=== PATIENT | male | born 1940 | race Caucasian/White ===

== ENCOUNTER 2021-05-27 20:44 | Inpatient (IN) ==
[2021-05-27] MEDS: LACTATED RINGERS 1,000 ML IV STA (21:45)
[2021-05-27 22:14] LABS: Basophils % 0.2 % (0.0-0.8); Eosinophils # 0.1 10*3/uL (0.0-0.87); Eosinophils % 0.8 % (0.00-10.9); Hematocrit 36.8 VOL% (42.0-52.0); Hemoglobin 12.4 GM/DL (14.0-18.0); Immature Granulocytes % 0.5 %; Immature Granulocytes Absolute 0.04 #; Lymphocytes # 1.1 10*3/uL (1.4-4.0); Lymphocytes % 13.1 % (21.2-54.2); Mean Corpuscular HGB Conc 33.7 GM/DL (32-36); Mean Platelet Volume 11.9 FL (9.6-12.0); Monocytes % 18.2 % (1.7-12.7); Neutrophils % 67.2 % (38.7-73.9); Platelet Count 101 T/CUMM (130-400); Red Blood Count 3.68 MC/CUMM (3.8-5.5); Red Cell Distribution Width 13.2 % (9.3-17.3); White Blood Count 8.6 T/CUMM (4-12)
[2021-05-27 22:26] LABS: Bacteria,Urine Occasional /HPF (Few); Bilirubin,Urine Negative (Negative); Blood, Urine Small mg/dL (Negative); Glucose,Urine (UA) Negative (Negative); INR 1.1; Ketones,Urine Negative (Negative); Mucus,Urine Occasional /LPF (Occasional); Nitrite,Urine Negative (Negative); PT Patient Result 12.4 SECS (10.5-12.0); Partial Thromboplastin Time 28.1 SECS (23.9-33.8); Protein,Urine Negative; RBC,Urine 7 /HPF (0-4); Squamous Epithelial Cell,Urine Occasional /HPF (0-10); Urine Appearance Slightly Hazy (Clear); Urine Color Yellow (Yellow); Urine Specific Gravity 1.015 (1.001-1.035); Urine Urobilinogen < 2.0 EU/DL (0.2-1.0)
[2021-05-27 22:36] LABS: Albumin 2.4 G/DL (3.4-5.0); Bilirubin,Total 0.8 MG/DL (0.20-1.00); Osmolality,Calculated 289.7 MOS/KG (273-304); Total Protein 6.8 G/DL (6.4-8.2)
[2021-05-27 22:37] LABS: Total Protein,Urine Random 59 MG/DL; Urea Nitrogen, Urine Random 407 MG/DL
[2021-05-27 22:44] LABS: Potassium 6.8 MMOL/L (3.5-5.1)
[2021-05-27] MEDS ORDERED: CALCIUM GLUCONATE 2,000 MG in SODIUM CHLORIDE 0.9% 100 ML IV ONE (22:55)
[2021-05-27] MEDS ORDERED: CEFEPIME 2,000 MG in SODIUM CHLORIDE 0.9% 100 ML IV STA (22:55)
[2021-05-27] MEDS ORDERED: INSULIN REGULAR 100 UNIT/ML IV STA (22:57)
[2021-05-27] MEDS ORDERED: VASOPRESSIN 100 UNITS in SODIUM CHLORIDE 0.9% 95 ML IV PRN (23:09)
[2021-05-27 23:16] LABS: ABG Base Excess -12.1 MMOL/L (-2.5-2.5); ABG HCO3 15.1 MMOL/L (20-26); ABG Oxygen Saturation 96.6 % (95-100); ABG PCO2 26.8 MM HG (35-48); ABG PH 7.297 (7.35-7.45); ABG TCO2 11.7 MMOL/L (23-27)
[2021-05-27] MEDS ORDERED: DEXTROSE 50% 25 GM/50 ML VIAL IV STA (23:25)
[2021-05-27 23:26] LABS: Lymphocytes 7 % (20-55); Platelet Estimate Normal; Segmented Neutrophils 80 % (50-85); Total Cells Counted 100
[2021-05-28] MEDS ORDERED: SODIUM ZIRCONIUM CYCLOSILICATE 10 GM PACK PO ONE (00:34)
[2021-05-28] MEDS: ALBUMIN 25% 50 GM/200 ML VIAL IV ONE ×2 (00:50→04:01)
[2021-05-28] MEDS ORDERED: SODIUM CHLORIDE 0.9% 1,000 ML IV SCH (01:00)
[2021-05-28] MEDS ORDERED: INSULIN REGULAR 10 UNIT, CALCIUM GLUCONATE 1,000 MG in DEXTROSE 10% 250 ML IV ONE (01:14)
[2021-05-28] MEDS ORDERED: SODIUM CHLORIDE 0.9% 1,000 ML IV STA (01:17)
[2021-05-28] MEDS ORDERED: SODIUM BICARBONATE 50 MEQ/50 ML VIAL IV STA (01:21)
[2021-05-28] MEDS ORDERED: DEXTROSE 50% 25 GM/50 ML VIAL IV STA (01:21)
[2021-05-28] MEDS ORDERED: GLUCAGON 1 MG VIAL IM PRN (02:43)
[2021-05-28] MEDS ORDERED: ONDANSETRON 4 MG/2 ML VIAL IV PRN (02:43)
[2021-05-28] MEDS ORDERED: ACETAMINOPHEN 325 MG TABLET PO PRN (02:43)
[2021-05-28] MEDS: SODIUM BICARB INJ 150 MEQ in DEXTROSE 5% 850 ML IV SCH ×2 (03:57→11:55)
[2021-05-28] MEDS: LACTATED RINGERS 1,000 ML IV STA (04:02)
[2021-05-28] MEDS ORDERED: INSULIN LISPRO 100 UNIT/ML SUBCUT SCH (06:00)
[2021-05-28] MEDS: cefTRIAXone 1,000 MG in SODIUM CHLORIDE 0.9% 100 ML IV SCH (06:10)
[2021-05-28 06:12] LABS: Basophils % 0.1 % (0.0-0.8); Hematocrit 36.8 VOL% (42.0-52.0); Hemoglobin 12.4 GM/DL (14.0-18.0); Immature Granulocytes % 0.5 %; Immature Granulocytes Absolute 0.05 #; Lymphocytes # 0.6 10*3/uL (1.4-4.0); Lymphocytes % 5.3 % (21.2-54.2); Mean Corpuscular HGB Conc 33.7 GM/DL (32-36); Mean Corpuscular Volume 99.5 FL (87-102); Mean Platelet Volume 11.4 FL (9.6-12.0); Monocytes % 10.4 % (1.7-12.7); Neutrophils % 83.7 % (38.7-73.9); Platelet Count 96 T/CUMM (130-400); Red Cell Distribution Width 13.2 % (9.3-17.3)
[2021-05-28 06:47] LABS: Albumin 2.3 G/DL (3.4-5.0); Bilirubin,Total 1.1 MG/DL (0.20-1.00); Calcium 8.9 MG/DL (8.5-10.1); Osmolality,Calculated 296.4 MOS/KG (273-304); Total Protein 6.6 G/DL (6.4-8.2)
[2021-05-28] MEDS ORDERED: SODIUM POLYSTYRENE SULFATE 15 GM/60 ML BOTTLE PO ONE (07:06)
[2021-05-28] MEDS ORDERED: INSULIN REGULAR 100 UNIT/ML IV ONE (07:07)
[2021-05-28] MEDS ORDERED: SODIUM CHLORIDE 0.9% 500 ML IV ONE (07:08)
[2021-05-28] MEDS ORDERED: SODIUM BICARBONATE 50 MEQ/50 ML VIAL IV ONE (07:20)
[2021-05-28] MEDS ORDERED: NOREPINEPHRINE 4 MG/4 ML VIAL IV ONE (07:23)
[2021-05-28] MEDS: INSULIN LISPRO 100 UNIT/ML SUBCUT SCH ×4 (08:55→20:45)
[2021-05-28] MEDS: NOREPINEPHRINE 8 MG in SODIUM CHLORIDE 0.9% 242 ML IV PRN (08:56)
[2021-05-28] MEDS ORDERED: HEPARIN 10,000 UNIT/10 ML VIAL IV PRN (08:58)
[2021-05-28] MEDS ORDERED: ALBUMIN 25% 25 GM/100 ML VIAL IV PRN (09:01)
[2021-05-28] MEDS: PANTOPRAZOLE 40 MG TABLET PO SCH ×2 (09:13→20:45)
[2021-05-28] MEDS: FINASTERIDE 5 MG TABLET PO SCH (09:13)
[2021-05-28] MEDS: TAMSULOSIN 0.4 MG CAPSULE PO SCH ×2 (09:13→20:45)
[2021-05-28] MEDS: CITALOPRAM 20 MG TABLET PO SCH (09:13)
[2021-05-28 10:11] LABS: Hepatitis B Core IgM Quant 0.08 Index; Hepatitis B Surface Ag Quant < 0.10 Index; Hepatitis B Surface Ag Result Non-Reactive (NonReactive); Hepatitis C Virus Ab Quant 0.06 Index; Hepatitis C Virus Ab Result Non-Reactive (NonReactive)
[2021-05-28] MEDS: SODIUM BICARB INJ 150 MEQ in DEXTROSE 5% 1,000 ML IV SCH ×2 (11:55→13:16)
[2021-05-28] MEDS: ROSUVASTATIN 20 MG TABLET PO SCH (20:45)
[2021-05-28] MEDS: DONEPEZIL 10 MG TABLET PO SCH (20:45)
[2021-05-29] MEDS: INSULIN LISPRO 100 UNIT/ML SUBCUT SCH ×7 (00:10→21:15)
[2021-05-29] MEDS: SODIUM BICARB INJ 150 MEQ in DEXTROSE 5% 1,000 ML IV SCH (00:43)
[2021-05-29] MEDS: NOREPINEPHRINE 8 MG in SODIUM CHLORIDE 0.9% 242 ML IV PRN ×5 (01:00→20:30)
[2021-05-29] MEDS: cefTRIAXone 1,000 MG in SODIUM CHLORIDE 0.9% 100 ML IV SCH (05:50)
[2021-05-29 06:02] LABS: Basophils % 0.2 % (0.0-0.8); Eosinophils % 0.2 % (0.00-10.9); Hematocrit 34.5 VOL% (42.0-52.0); Hemoglobin 11.8 GM/DL (14.0-18.0); Immature Granulocytes % 0.4 %; Immature Granulocytes Absolute 0.04 #; Lymphocytes # 0.6 10*3/uL (1.4-4.0); Lymphocytes % 5.6 % (21.2-54.2); Mean Corpuscular HGB Conc 34.2 GM/DL (32-36); Mean Corpuscular Volume 99.1 FL (87-102); Mean Platelet Volume 11.7 FL (9.6-12.0); Monocytes % 14.2 % (1.7-12.7); Neutrophils % 79.4 % (38.7-73.9); Platelet Count 97 T/CUMM (130-400); Red Blood Count 3.48 MC/CUMM (3.8-5.5); Red Cell Distribution Width 13.3 % (9.3-17.3); White Blood Count 10.6 T/CUMM (4-12)
[2021-05-29 06:11] LABS: INR 1.2; PT Patient Result 13.1 SECS (10.5-12.0)
[2021-05-29 06:36] LABS: Albumin 2.9 G/DL (3.4-5.0); Calcium 8.6 MG/DL (8.5-10.1); Potassium 4.9 MMOL/L (3.5-5.1); Total Protein 6.6 G/DL (6.4-8.2)
[2021-05-29 06:36] LABS: Albumin 2.9 G/DL (3.4-5.0); Bilirubin,Direct 0.37 MG/DL (0.0-0.20); Bilirubin,Indirect 0.7 MG/DL (0.0-1.0); Bilirubin,Total 1.1 MG/DL (0.20-1.00); Calcium 8.6 MG/DL (8.5-10.1); Total Protein 6.7 G/DL (6.4-8.2)
[2021-05-29] MEDS: TAMSULOSIN 0.4 MG CAPSULE PO SCH ×2 (08:44→21:15)
[2021-05-29] MEDS: PANTOPRAZOLE 40 MG TABLET PO SCH ×2 (08:44→21:15)
[2021-05-29] MEDS: CITALOPRAM 20 MG TABLET PO SCH (08:44)
[2021-05-29] MEDS: FINASTERIDE 5 MG TABLET PO SCH (08:46)
[2021-05-29 09:09] LABS: Anisocytosis 1+; Macrocytosis 1+; Platelet Estimate Decreased
[2021-05-29] MEDS ORDERED: VANCOMYCIN INJ 750 MG in SODIUM CHLORIDE 0.9% 250 ML IV PRN (12:03)
[2021-05-29] MEDS: NON-FORMULARY MEDICATION (Cholecalciferol (Vitamin D3) 1,250 mcg (50,000 unit) Capsule) PO SCH (12:49)
[2021-05-29] MEDS: HEPARIN 5,000 UNIT/1 ML VIAL SUBCUT SCH ×2 (12:49→18:48)
[2021-05-29] MEDS: SODIUM CHLORIDE 0.9% 1,000 ML IV SCH (12:49)
[2021-05-29] MEDS ORDERED: VANCOMYCIN INJ 2,500 MG in SODIUM CHLORIDE 0.9% 500 ML IV ONE (13:00)
[2021-05-29] MEDS: ROSUVASTATIN 20 MG TABLET PO SCH (21:15)
[2021-05-29] MEDS: DONEPEZIL 10 MG TABLET PO SCH (21:15)
[2021-05-30] MEDS: INSULIN LISPRO 100 UNIT/ML SUBCUT SCH ×6 (01:18→20:35)
[2021-05-30] MEDS: HEPARIN 5,000 UNIT/1 ML VIAL SUBCUT SCH (02:10)
[2021-05-30] MEDS: SODIUM CHLORIDE 0.9% 1,000 ML IV SCH ×3 (02:20→18:28)
[2021-05-30] MEDS: NOREPINEPHRINE 8 MG in SODIUM CHLORIDE 0.9% 242 ML IV PRN ×3 (03:35→20:06)
[2021-05-30 07:00] LABS: Basophils % 0.4 % (0.0-0.8); Eosinophils # 0.1 10*3/uL (0.0-0.87); Eosinophils % 1.1 % (0.00-10.9); Hematocrit 34.3 VOL% (42.0-52.0); Hemoglobin 11.4 GM/DL (14.0-18.0); Immature Granulocytes % 0.7 %; Immature Granulocytes Absolute 0.05 #; Lymphocytes # 0.6 10*3/uL (1.4-4.0); Lymphocytes % 8.4 % (21.2-54.2); Mean Corpuscular HGB Conc 33.2 GM/DL (32-36); Mean Corpuscular Volume 101.8 FL (87-102); Mean Platelet Volume 11.9 FL (9.6-12.0); Monocytes % 12.2 % (1.7-12.7); Neutrophils % 77.2 % (38.7-73.9); Platelet Count 59 T/CUMM (130-400); Red Blood Count 3.37 MC/CUMM (3.8-5.5); Red Cell Distribution Width 13.4 % (9.3-17.3); White Blood Count 7.5 T/CUMM (4-12)
[2021-05-30 07:06] LABS: Albumin 2.5 G/DL (3.4-5.0); Bilirubin,Direct 0.24 MG/DL (0.0-0.20); Bilirubin,Indirect 0.8 MG/DL (0.0-1.0); Calcium 8.2 MG/DL (8.5-10.1); Osmolality,Calculated 289.8 MOS/KG (273-304); Potassium 4.9 MMOL/L (3.5-5.1); Total Protein 6.2 G/DL (6.4-8.2)
[2021-05-30 07:07] LABS: Albumin 2.3 G/DL (3.4-5.0); Bilirubin,Total 0.8 MG/DL (0.20-1.00); Calcium 8.3 MG/DL (8.5-10.1); Osmolality,Calculated 287.1 MOS/KG (273-304); Potassium 5.2 MMOL/L (3.5-5.1); Total Protein 6.1 G/DL (6.4-8.2)
[2021-05-30 07:54] LABS: INR 1.2; PT Patient Result 13.5 SECS (10.5-12.0)
[2021-05-30] MEDS: FAMOTIDINE 20 MG TABLET PO SCH ×2 (09:57→20:54)
[2021-05-30] MEDS: CITALOPRAM 20 MG TABLET PO SCH (09:57)
[2021-05-30] MEDS: TAMSULOSIN 0.4 MG CAPSULE PO SCH ×2 (09:57→20:54)
[2021-05-30] MEDS: FINASTERIDE 5 MG TABLET PO SCH (09:57)
[2021-05-30] MEDS: AMPICILLIN INJ 2,000 MG in SODIUM CHLORIDE 0.9% 100 ML IV SCH (15:50)
[2021-05-30] MEDS: ALBUTEROL 2.5 MG/3 ML NEB RESP TX PRN ×2 (18:00→20:19)
[2021-05-30] MEDS: DONEPEZIL 10 MG TABLET PO SCH (20:54)
[2021-05-30] MEDS: traZODone 50 MG TABLET PO PRN (20:54)
[2021-05-30] MEDS: ROSUVASTATIN 20 MG TABLET PO SCH (20:54)
[2021-05-31] MEDS: INSULIN LISPRO 100 UNIT/ML SUBCUT SCH ×6 (00:56→20:35)
[2021-05-31] MEDS: SODIUM CHLORIDE 0.9% 1,000 ML IV SCH ×2 (02:53→09:46)
[2021-05-31] MEDS: AMPICILLIN INJ 2,000 MG in SODIUM CHLORIDE 0.9% 100 ML IV SCH ×2 (03:40→16:31)
[2021-05-31 04:41] LABS: Basophils % 0.3 % (0.0-0.8); Eosinophils # 0.1 10*3/uL (0.0-0.87); Eosinophils % 1.7 % (0.00-10.9); Hematocrit 35.3 VOL% (42.0-52.0); Hemoglobin 11.3 GM/DL (14.0-18.0); Immature Granulocytes % 0.2 %; Immature Granulocytes Absolute 0.01 #; Lymphocytes # 0.4 10*3/uL (1.4-4.0); Lymphocytes % 7.4 % (21.2-54.2); Mean Corpuscular Volume 105.7 FL (87-102); Mean Platelet Volume 11.6 FL (9.6-12.0); Monocytes % 15.8 % (1.7-12.7); Neutrophils % 74.6 % (38.7-73.9); Platelet Count 57 T/CUMM (130-400); Red Blood Count 3.34 MC/CUMM (3.8-5.5); Red Cell Distribution Width 13.8 % (9.3-17.3); White Blood Count 5.8 T/CUMM (4-12)
[2021-05-31 05:00] LABS: Eosinophils 1 % (0-10); Lymphocytes 5 % (20-55); Nucleated Red Blood Cells 7 (0-5); Segmented Neutrophils 82 % (50-85); Total Cells Counted 100
[2021-05-31 05:01] LABS: Platelet Estimate Decreased
[2021-05-31 05:15] LABS: Albumin 2.5 G/DL (3.4-5.0); Bilirubin,Total 0.5 MG/DL (0.20-1.00); Calcium 8.2 MG/DL (8.5-10.1); Osmolality,Calculated 287.5 MOS/KG (273-304); Potassium 4.7 MMOL/L (3.5-5.1); Total Protein 6.4 G/DL (6.4-8.2)
[2021-05-31] MEDS: NOREPINEPHRINE 8 MG in SODIUM CHLORIDE 0.9% 242 ML IV PRN (07:25)
[2021-05-31] MEDS: CITALOPRAM 20 MG TABLET PO SCH (08:24)
[2021-05-31] MEDS: FAMOTIDINE 20 MG TABLET PO SCH ×2 (08:24→20:36)
[2021-05-31] MEDS: FINASTERIDE 5 MG TABLET PO SCH (08:25)
[2021-05-31] MEDS: TAMSULOSIN 0.4 MG CAPSULE PO SCH ×2 (08:25→20:36)
[2021-05-31] MEDS ORDERED: ALBUMIN 25% 25 GM/100 ML VIAL IV PRN (09:41)
[2021-05-31] MEDS ORDERED: ALBUMIN 25% 25 GM/100 ML VIAL IV ONE (10:00)
[2021-05-31] MEDS ORDERED: TISSUE ADHESIVE 1 EACH APPLICATOR TOP ONE (16:01)
[2021-05-31 17:15] LABS: Neutrophils,Peritoneal Fluid 41 %
[2021-05-31 18:04] LABS: RBC,Peritoneal Fluid 87 T/CUMM
[2021-05-31] MEDS: ROSUVASTATIN 20 MG TABLET PO SCH (20:36)
[2021-05-31] MEDS: DONEPEZIL 10 MG TABLET PO SCH (20:36)
[2021-05-31] MEDS: traZODone 50 MG TABLET PO PRN (20:41)
[2021-05-31] MEDS: MELATONIN 3 MG TABLET PO PRN (21:26)
[2021-06-01] MEDS: INSULIN LISPRO 100 UNIT/ML SUBCUT SCH ×7 (00:47→23:34)
[2021-06-01] MEDS: AMPICILLIN INJ 2,000 MG in SODIUM CHLORIDE 0.9% 100 ML IV SCH ×2 (02:29→15:35)
[2021-06-01 03:43] LABS: Basophils % 0.2 % (0.0-0.8); Eosinophils # 0.2 10*3/uL (0.0-0.87); Eosinophils % 4.9 % (0.00-10.9); Hematocrit 31.6 VOL% (42.0-52.0); Hemoglobin 10.1 GM/DL (14.0-18.0); Immature Granulocytes % 0.4 %; Immature Granulocytes Absolute 0.02 #; Lymphocytes # 0.6 10*3/uL (1.4-4.0); Lymphocytes % 13.5 % (21.2-54.2); Mean Corpuscular Volume 105.3 FL (87-102); Mean Platelet Volume 11.1 FL (9.6-12.0); Monocytes % 15.3 % (1.7-12.7); Neutrophils % 65.7 % (38.7-73.9); Platelet Count 49 T/CUMM (130-400); Red Cell Distribution Width 13.7 % (9.3-17.3); White Blood Count 4.5 T/CUMM (4-12)
[2021-06-01 04:03] LABS: Albumin 2.4 G/DL (3.4-5.0); Bilirubin,Total 0.7 MG/DL (0.20-1.00); Calcium 8.2 MG/DL (8.5-10.1); Osmolality,Calculated 293.3 MOS/KG (273-304); Potassium 4.5 MMOL/L (3.5-5.1); Total Protein 5.6 G/DL (6.4-8.2)
[2021-06-01 04:21] LABS: Platelet Estimate Decreased
[2021-06-01] MEDS: NOREPINEPHRINE 8 MG in SODIUM CHLORIDE 0.9% 242 ML IV PRN (05:36)
[2021-06-01] MEDS: TAMSULOSIN 0.4 MG CAPSULE PO SCH ×2 (08:31→20:36)
[2021-06-01] MEDS: FINASTERIDE 5 MG TABLET PO SCH (08:31)
[2021-06-01] MEDS: FAMOTIDINE 20 MG TABLET PO SCH (08:31)
[2021-06-01] MEDS: CITALOPRAM 20 MG TABLET PO SCH (08:31)
[2021-06-01] MEDS: ALBUTEROL 2.5 MG/3 ML NEB RESP TX PRN (14:28)
[2021-06-01] MEDS: traZODone 50 MG TABLET PO PRN (20:34)
[2021-06-01] MEDS: MELATONIN 3 MG TABLET PO PRN (20:35)
[2021-06-01] MEDS: DONEPEZIL 10 MG TABLET PO SCH (20:36)
[2021-06-01] MEDS: ROSUVASTATIN 20 MG TABLET PO SCH (20:36)
[2021-06-02] MEDS: AMPICILLIN INJ 2,000 MG in SODIUM CHLORIDE 0.9% 100 ML IV SCH ×2 (03:52→16:08)
[2021-06-02] MEDS: INSULIN LISPRO 100 UNIT/ML SUBCUT SCH ×4 (04:25→15:55)
[2021-06-02 04:34] LABS: Basophils % 0.3 % (0.0-0.8); Eosinophils # 0.2 10*3/uL (0.0-0.87); Eosinophils % 4.3 % (0.00-10.9); Hemoglobin 10.2 GM/DL (14.0-18.0); Immature Granulocytes % 0.3 %; Immature Granulocytes Absolute 0.01 #; Lymphocytes # 0.6 10*3/uL (1.4-4.0); Lymphocytes % 15.6 % (21.2-54.2); Mean Corpuscular HGB Conc 31.9 GM/DL (32-36); Mean Corpuscular Volume 105.6 FL (87-102); Mean Platelet Volume 11.7 FL (9.6-12.0); Monocytes % 16.8 % (1.7-12.7); Neutrophils % 62.7 % (38.7-73.9); Red Blood Count 3.03 MC/CUMM (3.8-5.5); Red Cell Distribution Width 13.5 % (9.3-17.3)
[2021-06-02 04:48] LABS: Albumin 2.5 G/DL (3.4-5.0); Bilirubin,Total 0.4 MG/DL (0.20-1.00); Calcium 8.2 MG/DL (8.5-10.1); Osmolality,Calculated 287.3 MOS/KG (273-304); Potassium 4.5 MMOL/L (3.5-5.1); Total Protein 5.7 G/DL (6.4-8.2)
[2021-06-02 04:49] LABS: Platelet Count 38 T/CUMM (130-400)
[2021-06-02 04:53] LABS: Eosinophils 3 % (0-10); Lymphocytes 19 % (20-55); Platelet Estimate Decreased; Segmented Neutrophils 71 % (50-85); Total Cells Counted 100
[2021-06-02] MEDS ORDERED: SODIUM CHLORIDE 0.9% 1,000 ML IV PRN (04:59)
[2021-06-02] MEDS: FINASTERIDE 5 MG TABLET PO SCH (08:28)
[2021-06-02] MEDS: FAMOTIDINE 20 MG TABLET PO SCH (08:28)
[2021-06-02] MEDS: CITALOPRAM 20 MG TABLET PO SCH (08:28)
[2021-06-02] MEDS: TAMSULOSIN 0.4 MG CAPSULE PO SCH ×2 (08:29→20:21)
[2021-06-02] MEDS: NOREPINEPHRINE 8 MG in SODIUM CHLORIDE 0.9% 242 ML IV PRN (08:33)
[2021-06-02] MEDS: ALBUTEROL 2.5 MG/3 ML NEB RESP TX PRN (09:13)
[2021-06-02] MEDS: ALBUTEROL/IPRATROPIUM 3 ML NEB RESP TX SCH ×3 (12:02→19:48)
[2021-06-02] MEDS: FLUDROCORTISONE 0.1 MG TABLET PO SCH ×2 (12:45→20:21)
[2021-06-02] MEDS: DONEPEZIL 10 MG TABLET PO SCH (20:21)
[2021-06-02] MEDS: ROSUVASTATIN 20 MG TABLET PO SCH (20:21)
[2021-06-02] MEDS: MELATONIN 3 MG TABLET PO PRN (20:38)
[2021-06-03] MEDS: INSULIN LISPRO 100 UNIT/ML SUBCUT SCH ×4 (02:17→17:14)
[2021-06-03] MEDS: AMPICILLIN INJ 2,000 MG in SODIUM CHLORIDE 0.9% 100 ML IV SCH ×2 (03:37→16:49)
[2021-06-03 05:52] LABS: Basophils % 0.5 % (0.0-0.8); Eosinophils # 0.2 10*3/uL (0.0-0.87); Eosinophils % 3.5 % (0.00-10.9); Hematocrit 32.6 VOL% (42.0-52.0); Hemoglobin 10.5 GM/DL (14.0-18.0); Immature Granulocytes % 0.2 %; Immature Granulocytes Absolute 0.01 #; Lymphocytes # 0.6 10*3/uL (1.4-4.0); Lymphocytes % 13.7 % (21.2-54.2); Mean Corpuscular HGB Conc 32.2 GM/DL (32-36); Mean Corpuscular Volume 105.2 FL (87-102); Mean Platelet Volume 11.9 FL (9.6-12.0); Neutrophils % 63.1 % (38.7-73.9); Platelet Count 47 T/CUMM (130-400); Red Cell Distribution Width 13.6 % (9.3-17.3); White Blood Count 4.3 T/CUMM (4-12)
[2021-06-03 06:20] LABS: Band Neutrophils 1 % (0-10); Eosinophils 1 % (0-10); Lymphocytes 4 % (20-55); Segmented Neutrophils 77 % (50-85)
[2021-06-03 06:21] LABS: Platelet Estimate Decreased; Total Cells Counted 100
[2021-06-03 06:24] LABS: Calcium 8.4 MG/DL (8.5-10.1); Potassium 4.6 MMOL/L (3.5-5.1)
[2021-06-03] MEDS: ALBUTEROL/IPRATROPIUM 3 ML NEB RESP TX SCH ×5 (07:05→23:45)
[2021-06-03] MEDS: TAMSULOSIN 0.4 MG CAPSULE PO SCH ×2 (08:28→22:07)
[2021-06-03] MEDS: FAMOTIDINE 20 MG TABLET PO SCH (08:28)
[2021-06-03] MEDS: FLUDROCORTISONE 0.1 MG TABLET PO SCH ×2 (08:28→22:07)
[2021-06-03] MEDS: CITALOPRAM 20 MG TABLET PO SCH (08:28)
[2021-06-03] MEDS: FINASTERIDE 5 MG TABLET PO SCH (08:28)
[2021-06-03] MEDS: ROSUVASTATIN 20 MG TABLET PO SCH (22:06)
[2021-06-03] MEDS: MELATONIN 3 MG TABLET PO PRN (22:06)
[2021-06-03] MEDS: DONEPEZIL 10 MG TABLET PO SCH (22:07)
[2021-06-03] MEDS: traZODone 50 MG TABLET PO PRN (22:15)
[2021-06-04] MEDS: INSULIN LISPRO 100 UNIT/ML SUBCUT SCH ×4 (01:12→17:45)
[2021-06-04] MEDS: ALBUTEROL/IPRATROPIUM 3 ML NEB RESP TX SCH ×7 (03:25→20:06)
[2021-06-04] MEDS: AMPICILLIN INJ 2,000 MG in SODIUM CHLORIDE 0.9% 100 ML IV SCH ×2 (03:53→15:39)
[2021-06-04 05:39] LABS: Basophils % 0.7 % (0.0-0.8); Eosinophils # 0.2 10*3/uL (0.0-0.87); Eosinophils % 3.5 % (0.00-10.9); Hematocrit 31.8 VOL% (42.0-52.0); Hemoglobin 10.3 GM/DL (14.0-18.0); Immature Granulocytes % 0.2 %; Immature Granulocytes Absolute 0.01 #; Lymphocytes # 0.7 10*3/uL (1.4-4.0); Lymphocytes % 17.3 % (21.2-54.2); Mean Corpuscular HGB Conc 32.4 GM/DL (32-36); Mean Corpuscular Volume 105.3 FL (87-102); Mean Platelet Volume 11.6 FL (9.6-12.0); Monocytes % 19.7 % (1.7-12.7); Neutrophils % 58.6 % (38.7-73.9); Red Blood Count 3.02 MC/CUMM (3.8-5.5); Red Cell Distribution Width 13.7 % (9.3-17.3); White Blood Count 4.3 T/CUMM (4-12)
[2021-06-04 05:52] LABS: Platelet Count 38 T/CUMM (130-400)
[2021-06-04] MEDS ORDERED: SODIUM CHLORIDE 0.9% 1,000 ML IV PRN (06:00)
[2021-06-04 06:03] LABS: Calcium 8.4 MG/DL (8.5-10.1); Osmolality,Calculated 288.3 MOS/KG (273-304); Potassium 4.1 MMOL/L (3.5-5.1)
[2021-06-04 06:09] LABS: Eosinophils 3 % (0-10); Lymphocytes 13 % (20-55); Platelet Estimate Decreased; Segmented Neutrophils 68 % (50-85); Total Cells Counted 100
[2021-06-04 06:10] LABS: Albumin 2.3 G/DL (3.4-5.0); Bilirubin,Total 0.5 MG/DL (0.20-1.00); Calcium 8.3 MG/DL (8.5-10.1); Hypochromasia Slight; Microcytosis Slight; Osmolality,Calculated 283.5 MOS/KG (273-304); Potassium 4.1 MMOL/L (3.5-5.1); Total Protein 5.7 G/DL (6.4-8.2)
[2021-06-04] MEDS ORDERED: BUPIVACAINE MPF 0.25% 30 ML VIAL ONE (08:12)
[2021-06-04] MEDS ORDERED: LIDOCAINE 1%/EPI INJ 20 ML VIAL ONE (08:12)
[2021-06-04] MEDS ORDERED: TISSUE ADHESIVE 1 EACH APPLICATOR TOP ONE (08:12)
[2021-06-04] MEDS: CITALOPRAM 20 MG TABLET PO SCH (08:41)
[2021-06-04] MEDS: TAMSULOSIN 0.4 MG CAPSULE PO SCH ×2 (08:41→20:31)
[2021-06-04] MEDS: FAMOTIDINE 20 MG TABLET PO SCH (08:42)
[2021-06-04] MEDS: FINASTERIDE 5 MG TABLET PO SCH (08:43)
[2021-06-04] MEDS: FLUDROCORTISONE 0.1 MG TABLET PO SCH ×2 (08:43→20:32)
[2021-06-04] MEDS: DONEPEZIL 10 MG TABLET PO SCH (20:32)
[2021-06-04] MEDS: MELATONIN 3 MG TABLET PO PRN (20:35)
[2021-06-04] MEDS: traZODone 50 MG TABLET PO PRN (20:35)
[2021-06-04] MEDS: ROSUVASTATIN 20 MG TABLET PO SCH (20:36)
[2021-06-05] MEDS: ALBUTEROL/IPRATROPIUM 3 ML NEB RESP TX SCH ×6 (00:50→19:55)
[2021-06-05] MEDS: INSULIN LISPRO 100 UNIT/ML SUBCUT SCH ×4 (03:06→18:08)
[2021-06-05] MEDS: AMPICILLIN INJ 2,000 MG in SODIUM CHLORIDE 0.9% 100 ML IV SCH ×2 (03:10→15:34)
[2021-06-05 04:33] LABS: Basophils % 0.5 % (0.0-0.8); Eosinophils # 0.2 10*3/uL (0.0-0.87); Eosinophils % 3.5 % (0.00-10.9); Hematocrit 33.5 VOL% (42.0-52.0); Hemoglobin 10.7 GM/DL (14.0-18.0); Lymphocytes # 0.8 10*3/uL (1.4-4.0); Lymphocytes % 18.4 % (21.2-54.2); Mean Corpuscular HGB Conc 31.9 GM/DL (32-36); Mean Corpuscular Volume 105.7 FL (87-102); Monocytes % 17.2 % (1.7-12.7); Neutrophils % 60.4 % (38.7-73.9); Platelet Count 41 T/CUMM (130-400); Red Blood Count 3.17 MC/CUMM (3.8-5.5); Red Cell Distribution Width 13.6 % (9.3-17.3); White Blood Count 4.2 T/CUMM (4-12)
[2021-06-05 04:45] LABS: INR 1.2; PT Patient Result 12.8 SECS (10.5-12.0)
[2021-06-05 04:56] LABS: Albumin 2.3 G/DL (3.4-5.0); Bilirubin,Total 0.5 MG/DL (0.20-1.00); Calcium 8.2 MG/DL (8.5-10.1); Osmolality,Calculated 293.1 MOS/KG (273-304); Potassium 4.2 MMOL/L (3.5-5.1); Total Protein 6.1 G/DL (6.4-8.2)
[2021-06-05 05:00] LABS: Eosinophils 3 % (0-10); Hypochromasia Slight; Lymphocytes 15 % (20-55); Microcytosis Slight; Platelet Estimate Decreased; Segmented Neutrophils 68 % (50-85); Total Cells Counted 100
[2021-06-05] MEDS: FINASTERIDE 5 MG TABLET PO SCH (08:11)
[2021-06-05] MEDS: TAMSULOSIN 0.4 MG CAPSULE PO SCH ×2 (08:11→21:38)
[2021-06-05] MEDS: FLUDROCORTISONE 0.1 MG TABLET PO SCH ×2 (08:11→21:38)
[2021-06-05] MEDS: CITALOPRAM 20 MG TABLET PO SCH (08:11)
[2021-06-05] MEDS: FAMOTIDINE 20 MG TABLET PO SCH (08:12)
[2021-06-05 08:27] LABS: Basophils % 0.4 % (0.0-0.8); Eosinophils # 0.2 10*3/uL (0.0-0.87); Eosinophils % 3.2 % (0.00-10.9); Hematocrit 31.7 VOL% (42.0-52.0); Hemoglobin 10.1 GM/DL (14.0-18.0); Immature Granulocytes % 0.2 %; Immature Granulocytes Absolute 0.01 #; Lymphocytes # 0.8 10*3/uL (1.4-4.0); Lymphocytes % 14.9 % (21.2-54.2); Mean Corpuscular HGB Conc 31.9 GM/DL (32-36); Mean Corpuscular Volume 104.6 FL (87-102); Mean Platelet Volume 10.9 FL (9.6-12.0); Monocytes % 19.3 % (1.7-12.7); Platelet Count 52 T/CUMM (130-400); Red Blood Count 3.03 MC/CUMM (3.8-5.5); Red Cell Distribution Width 13.6 % (9.3-17.3); White Blood Count 5.2 T/CUMM (4-12)
[2021-06-05 08:49] LABS: Eosinophils 2 % (0-10); Hypochromasia Slight; Lymphocytes 16 % (20-55); Platelet Estimate Decreased; Segmented Neutrophils 66 % (50-85); Total Cells Counted 100
[2021-06-05 08:50] LABS: Microcytosis Slight
[2021-06-05] MEDS: NON-FORMULARY MEDICATION (Cholecalciferol (Vitamin D3) 1,250 mcg (50,000 unit) Capsule) PO SCH (09:26)
[2021-06-05] MEDS: MELATONIN 3 MG TABLET PO PRN (21:38)
[2021-06-05] MEDS: DONEPEZIL 10 MG TABLET PO SCH (21:38)
[2021-06-05] MEDS: traZODone 50 MG TABLET PO PRN (21:38)
[2021-06-05] MEDS: ROSUVASTATIN 20 MG TABLET PO SCH (21:38)
[2021-06-06] MEDS: ALBUTEROL/IPRATROPIUM 3 ML NEB RESP TX SCH ×7 (00:40→23:50)
[2021-06-06] MEDS: INSULIN LISPRO 100 UNIT/ML SUBCUT SCH ×4 (01:45→17:29)
[2021-06-06] MEDS: AMPICILLIN INJ 2,000 MG in SODIUM CHLORIDE 0.9% 100 ML IV SCH ×2 (04:11→15:05)
[2021-06-06 04:48] LABS: Basophils % 0.5 % (0.0-0.8); Eosinophils # 0.1 10*3/uL (0.0-0.87); Eosinophils % 3.5 % (0.00-10.9); Hematocrit 32.7 VOL% (42.0-52.0); Hemoglobin 10.6 GM/DL (14.0-18.0); Immature Granulocytes % 0.5 %; Immature Granulocytes Absolute 0.02 #; Lymphocytes # 0.6 10*3/uL (1.4-4.0); Mean Corpuscular HGB Conc 32.4 GM/DL (32-36); Mean Corpuscular Volume 104.1 FL (87-102); Mean Platelet Volume 11.8 FL (9.6-12.0); Monocytes % 18.3 % (1.7-12.7); Neutrophils % 63.2 % (38.7-73.9); Red Blood Count 3.14 MC/CUMM (3.8-5.5); Red Cell Distribution Width 13.6 % (9.3-17.3)
[2021-06-06 04:51] LABS: Platelet Count 47 T/CUMM (130-400)
[2021-06-06 05:09] LABS: Band Neutrophils 1 % (0-10); Eosinophils 7 % (0-10); Hypochromasia 1+; Lymphocytes 11 % (20-55); Microcytosis Slight; Segmented Neutrophils 66 % (50-85); Total Cells Counted 100
[2021-06-06 05:10] LABS: Ovalocytes Slight; Platelet Estimate Decreased
[2021-06-06 05:15] LABS: Calcium 8.5 MG/DL (8.5-10.1); Osmolality,Calculated 292.4 MOS/KG (273-304)
[2021-06-06] MEDS ORDERED: ALBUMIN 25% 12.5 GM/50 ML VIAL IV PRN (10:25)
[2021-06-06] MEDS: FLUDROCORTISONE 0.1 MG TABLET PO SCH ×2 (12:08→21:41)
[2021-06-06] MEDS: FINASTERIDE 5 MG TABLET PO SCH (12:10)
[2021-06-06] MEDS: FAMOTIDINE 20 MG TABLET PO SCH (12:10)
[2021-06-06] MEDS: TAMSULOSIN 0.4 MG CAPSULE PO SCH ×2 (12:11→21:41)
[2021-06-06] MEDS: CITALOPRAM 20 MG TABLET PO SCH (12:11)
[2021-06-06] MEDS: DONEPEZIL 10 MG TABLET PO SCH (21:41)
[2021-06-06] MEDS: ROSUVASTATIN 20 MG TABLET PO SCH (21:41)
[2021-06-07] MEDS: INSULIN LISPRO 100 UNIT/ML SUBCUT SCH ×4 (00:11→18:02)
[2021-06-07] MEDS: AMPICILLIN INJ 2,000 MG in SODIUM CHLORIDE 0.9% 100 ML IV SCH ×2 (02:59→16:08)
[2021-06-07 05:16] LABS: Basophils % 0.5 % (0.0-0.8); Eosinophils # 0.1 10*3/uL (0.0-0.87); Eosinophils % 2.3 % (0.00-10.9); Hematocrit 31.3 VOL% (42.0-52.0); Hemoglobin 10.2 GM/DL (14.0-18.0); Immature Granulocytes % 0.5 %; Immature Granulocytes Absolute 0.02 #; Lymphocytes # 0.6 10*3/uL (1.4-4.0); Lymphocytes % 14.4 % (21.2-54.2); Mean Corpuscular HGB Conc 32.6 GM/DL (32-36); Mean Corpuscular Volume 103.6 FL (87-102); Mean Platelet Volume 12.2 FL (9.6-12.0); Monocytes % 17.8 % (1.7-12.7); Neutrophils % 64.5 % (38.7-73.9); Red Blood Count 3.02 MC/CUMM (3.8-5.5); Red Cell Distribution Width 13.3 % (9.3-17.3); White Blood Count 4.3 T/CUMM (4-12)
[2021-06-07 05:28] LABS: Platelet Count 36 T/CUMM (130-400)
[2021-06-07 05:45] LABS: Eosinophils 5 % (0-10); Hypochromasia 1+; Lymphocytes 17 % (20-55); Microcytosis 1+; Platelet Estimate Decreased; Segmented Neutrophils 68 % (50-85); Total Cells Counted 100
[2021-06-07 05:47] LABS: Albumin 2.2 G/DL (3.4-5.0); Bilirubin,Total 0.5 MG/DL (0.20-1.00); Calcium 8.3 MG/DL (8.5-10.1); Osmolality,Calculated 297.3 MOS/KG (273-304); Potassium 4.3 MMOL/L (3.5-5.1); Total Protein 5.8 G/DL (6.4-8.2)
[2021-06-07] MEDS: ALBUTEROL/IPRATROPIUM 3 ML NEB RESP TX SCH ×5 (07:11→23:19)
[2021-06-07] MEDS ORDERED: SODIUM CHLORIDE 0.9% 1,000 ML IV PRN (08:34)
[2021-06-07] MEDS: FINASTERIDE 5 MG TABLET PO SCH (09:30)
[2021-06-07] MEDS: FLUDROCORTISONE 0.1 MG TABLET PO SCH ×2 (09:30→20:50)
[2021-06-07] MEDS: TAMSULOSIN 0.4 MG CAPSULE PO SCH ×2 (09:31→20:49)
[2021-06-07] MEDS: FAMOTIDINE 20 MG TABLET PO SCH (09:31)
[2021-06-07] MEDS: CITALOPRAM 20 MG TABLET PO SCH (09:31)
[2021-06-07] MEDS: DONEPEZIL 10 MG TABLET PO SCH (20:49)
[2021-06-07] MEDS: ROSUVASTATIN 20 MG TABLET PO SCH (20:49)
[2021-06-07] MEDS: MELATONIN 3 MG TABLET PO PRN (20:53)
[2021-06-07] MEDS: traZODone 50 MG TABLET PO PRN (20:53)
[2021-06-08] MEDS: ALBUTEROL/IPRATROPIUM 3 ML NEB RESP TX SCH ×5 (02:59→19:39)
[2021-06-08] MEDS: AMPICILLIN INJ 2,000 MG in SODIUM CHLORIDE 0.9% 100 ML IV SCH ×2 (04:05→17:02)
[2021-06-08 05:39] LABS: Basophils % 0.5 % (0.0-0.8); Eosinophils # 0.1 10*3/uL (0.0-0.87); Eosinophils % 2.7 % (0.00-10.9); Hematocrit 31.3 VOL% (42.0-52.0); Hemoglobin 10.3 GM/DL (14.0-18.0); Lymphocytes # 0.7 10*3/uL (1.4-4.0); Lymphocytes % 17.7 % (21.2-54.2); Mean Corpuscular HGB Conc 32.9 GM/DL (32-36); Mean Corpuscular Volume 103.3 FL (87-102); Mean Platelet Volume 12.6 FL (9.6-12.0); Monocytes % 16.9 % (1.7-12.7); Neutrophils % 62.2 % (38.7-73.9); Red Blood Count 3.03 MC/CUMM (3.8-5.5); Red Cell Distribution Width 13.3 % (9.3-17.3); White Blood Count 3.7 T/CUMM (4-12)
[2021-06-08 05:46] LABS: Platelet Count 40 T/CUMM (130-400)
[2021-06-08 06:01] LABS: Calcium 8.2 MG/DL (8.5-10.1); Osmolality,Calculated 292.1 MOS/KG (273-304); Potassium 3.5 MMOL/L (3.5-5.1)
[2021-06-08 06:10] LABS: Eosinophils 4 % (0-10); Hypochromasia 1+; Lymphocytes 17 % (20-55); Segmented Neutrophils 72 % (50-85); Total Cells Counted 100
[2021-06-08 06:11] LABS: Microcytosis 1+; Platelet Estimate Decreased
[2021-06-08] MEDS: INSULIN LISPRO 100 UNIT/ML SUBCUT SCH ×4 (06:18→17:03)
[2021-06-08] MEDS: FLUDROCORTISONE 0.1 MG TABLET PO SCH ×2 (08:43→21:08)
[2021-06-08] MEDS: FINASTERIDE 5 MG TABLET PO SCH (08:44)
[2021-06-08] MEDS: TAMSULOSIN 0.4 MG CAPSULE PO SCH ×2 (08:44→21:08)
[2021-06-08] MEDS: FAMOTIDINE 20 MG TABLET PO SCH (08:44)
[2021-06-08] MEDS: CITALOPRAM 20 MG TABLET PO SCH (08:44)
[2021-06-08] MEDS: ROSUVASTATIN 20 MG TABLET PO SCH (21:08)
[2021-06-08] MEDS: DONEPEZIL 10 MG TABLET PO SCH (21:08)
[2021-06-08] MEDS: traZODone 50 MG TABLET PO PRN (21:09)
[2021-06-08] MEDS: MELATONIN 3 MG TABLET PO PRN (21:09)
[2021-06-09] MEDS: ALBUTEROL/IPRATROPIUM 3 ML NEB RESP TX SCH ×6 (00:18→20:08)
[2021-06-09] MEDS: INSULIN LISPRO 100 UNIT/ML SUBCUT SCH ×5 (00:37→23:27)
[2021-06-09] MEDS: AMPICILLIN INJ 2,000 MG in SODIUM CHLORIDE 0.9% 100 ML IV SCH ×2 (03:45→15:22)
[2021-06-09] MEDS: FLUDROCORTISONE 0.1 MG TABLET PO SCH ×2 (08:00→20:03)
[2021-06-09] MEDS: CITALOPRAM 20 MG TABLET PO SCH (08:01)
[2021-06-09] MEDS: FINASTERIDE 5 MG TABLET PO SCH (08:01)
[2021-06-09] MEDS: TAMSULOSIN 0.4 MG CAPSULE PO SCH ×2 (08:01→20:03)
[2021-06-09] MEDS: FAMOTIDINE 20 MG TABLET PO SCH (08:01)
[2021-06-09] MEDS: DONEPEZIL 10 MG TABLET PO SCH (20:03)
[2021-06-09] MEDS: ROSUVASTATIN 20 MG TABLET PO SCH (20:03)
[2021-06-10] MEDS: ALBUTEROL/IPRATROPIUM 3 ML NEB RESP TX SCH ×7 (00:15→23:22)
[2021-06-10] MEDS: MELATONIN 3 MG TABLET PO PRN ×2 (02:05→20:50)
[2021-06-10] MEDS: AMPICILLIN INJ 2,000 MG in SODIUM CHLORIDE 0.9% 100 ML IV SCH ×2 (02:19→14:50)
[2021-06-10 05:26] LABS: Basophils % 0.7 % (0.0-0.8); Eosinophils # 0.1 10*3/uL (0.0-0.87); Eosinophils % 2.5 % (0.00-10.9); Hematocrit 31.1 VOL% (42.0-52.0); Hemoglobin 10.2 GM/DL (14.0-18.0); Immature Granulocytes % 0.5 %; Immature Granulocytes Absolute 0.02 #; Lymphocytes # 0.7 10*3/uL (1.4-4.0); Mean Corpuscular HGB Conc 32.8 GM/DL (32-36); Mean Corpuscular Volume 102.3 FL (87-102); Mean Platelet Volume 12.7 FL (9.6-12.0); Neutrophils % 62.3 % (38.7-73.9); Platelet Count 42 T/CUMM (130-400); Red Blood Count 3.04 MC/CUMM (3.8-5.5); Red Cell Distribution Width 13.4 % (9.3-17.3); White Blood Count 4.1 T/CUMM (4-12)
[2021-06-10 05:34] LABS: Calcium 8.3 MG/DL (8.5-10.1); Osmolality,Calculated 289.3 MOS/KG (273-304); Potassium 3.5 MMOL/L (3.5-5.1)
[2021-06-10 06:13] LABS: Anisocytosis 1+; Eosinophils 1 % (0-10); Hypochromasia 1+; Lymphocytes 17 % (20-55); Microcytosis 1+; Segmented Neutrophils 67 % (50-85); Total Cells Counted 100
[2021-06-10] MEDS: INSULIN LISPRO 100 UNIT/ML SUBCUT SCH ×3 (06:13→17:36)
[2021-06-10 06:14] LABS: Platelet Estimate Decreased
[2021-06-10] MEDS: FLUDROCORTISONE 0.1 MG TABLET PO SCH ×2 (08:57→20:35)
[2021-06-10] MEDS: FAMOTIDINE 20 MG TABLET PO SCH (08:57)
[2021-06-10] MEDS: TAMSULOSIN 0.4 MG CAPSULE PO SCH ×2 (08:57→20:35)
[2021-06-10] MEDS: FINASTERIDE 5 MG TABLET PO SCH (08:57)
[2021-06-10] MEDS: CITALOPRAM 20 MG TABLET PO SCH (08:57)
[2021-06-10] MEDS ORDERED: ACETAMINOPHEN 500 MG TABLET PO PRN (09:09)
[2021-06-10 11:24] LABS: Albumin 2.2 G/DL (3.4-5.0); Bilirubin,Direct 0.15 MG/DL (0.0-0.20); Bilirubin,Indirect 0.4 MG/DL (0.0-1.0); Bilirubin,Total 0.5 MG/DL (0.20-1.00); Total Protein 6.5 G/DL (6.4-8.2)
[2021-06-10] MEDS: DONEPEZIL 10 MG TABLET PO SCH (20:34)
[2021-06-10] MEDS: ROSUVASTATIN 20 MG TABLET PO SCH (20:35)
[2021-06-10] MEDS: LACTULOSE 20 GM/30 ML UDCUP PO SCH (20:38)
[2021-06-10] MEDS: traZODone 50 MG TABLET PO PRN (20:50)
[2021-06-11] MEDS: ALBUTEROL/IPRATROPIUM 3 ML NEB RESP TX SCH ×6 (03:05→23:40)
[2021-06-11] MEDS: AMPICILLIN INJ 2,000 MG in SODIUM CHLORIDE 0.9% 100 ML IV SCH ×2 (03:10→16:20)
[2021-06-11] MEDS: INSULIN LISPRO 100 UNIT/ML SUBCUT SCH ×4 (03:37→18:55)
[2021-06-11 06:45] LABS: Basophils % 0.5 % (0.0-0.8); Eosinophils # 0.1 10*3/uL (0.0-0.87); Eosinophils % 2.5 % (0.00-10.9); Hematocrit 31.2 VOL% (42.0-52.0); Hemoglobin 10.4 GM/DL (14.0-18.0); Immature Granulocytes % 0.5 %; Immature Granulocytes Absolute 0.02 #; Lymphocytes # 0.7 10*3/uL (1.4-4.0); Lymphocytes % 18.3 % (21.2-54.2); Mean Corpuscular HGB Conc 33.3 GM/DL (32-36); Mean Corpuscular Volume 102.6 FL (87-102); Mean Platelet Volume 13.3 FL (9.6-12.0); Neutrophils % 61.2 % (38.7-73.9); Platelet Count 45 T/CUMM (130-400); Red Blood Count 3.04 MC/CUMM (3.8-5.5); Red Cell Distribution Width 13.5 % (9.3-17.3); White Blood Count 4.1 T/CUMM (4-12)
[2021-06-11 07:03] LABS: Calcium 8.3 MG/DL (8.5-10.1); Osmolality,Calculated 290.4 MOS/KG (273-304); Potassium 3.8 MMOL/L (3.5-5.1)
[2021-06-11 07:36] LABS: Eosinophils 2 % (0-10); Lymphocytes 18 % (20-55); Platelet Estimate Decreased; Segmented Neutrophils 73 % (50-85); Total Cells Counted 100
[2021-06-11 07:39] LABS: Macrocytosis 1+
[2021-06-11] MEDS: FLUDROCORTISONE 0.1 MG TABLET PO SCH ×2 (08:28→21:00)
[2021-06-11] MEDS: FAMOTIDINE 20 MG TABLET PO SCH (08:28)
[2021-06-11] MEDS: LACTULOSE 20 GM/30 ML UDCUP PO SCH ×2 (08:28→20:59)
[2021-06-11] MEDS: CITALOPRAM 20 MG TABLET PO SCH (08:28)
[2021-06-11] MEDS: TAMSULOSIN 0.4 MG CAPSULE PO SCH ×2 (08:28→21:00)
[2021-06-11] MEDS: FINASTERIDE 5 MG TABLET PO SCH (08:30)
[2021-06-11] MEDS: DONEPEZIL 10 MG TABLET PO SCH (20:59)
[2021-06-11] MEDS: MELATONIN 3 MG TABLET PO PRN (21:00)
[2021-06-11] MEDS: ROSUVASTATIN 20 MG TABLET PO SCH (21:00)
[2021-06-11] MEDS: traZODone 50 MG TABLET PO PRN (21:00)
[2021-06-12] MEDS: INSULIN LISPRO 100 UNIT/ML SUBCUT SCH ×5 (00:38→23:53)
[2021-06-12] MEDS: AMPICILLIN INJ 2,000 MG in SODIUM CHLORIDE 0.9% 100 ML IV SCH ×2 (02:48→16:11)
[2021-06-12] MEDS: ALBUTEROL/IPRATROPIUM 3 ML NEB RESP TX SCH ×5 (03:07→19:55)
[2021-06-12 06:35] LABS: Basophils % 0.7 % (0.0-0.8); Eosinophils # 0.1 10*3/uL (0.0-0.87); Eosinophils % 2.6 % (0.00-10.9); Hematocrit 33.4 VOL% (42.0-52.0); Hemoglobin 10.9 GM/DL (14.0-18.0); Immature Granulocytes % 0.5 %; Immature Granulocytes Absolute 0.02 #; Lymphocytes # 0.6 10*3/uL (1.4-4.0); Mean Corpuscular HGB Conc 32.6 GM/DL (32-36); Mean Corpuscular Volume 103.7 FL (87-102); Mean Platelet Volume 12.3 FL (9.6-12.0); Monocytes % 17.4 % (1.7-12.7); Neutrophils % 63.8 % (38.7-73.9); Red Blood Count 3.22 MC/CUMM (3.8-5.5); Red Cell Distribution Width 13.4 % (9.3-17.3); White Blood Count 4.2 T/CUMM (4-12)
[2021-06-12 06:40] LABS: Platelet Count 48 T/CUMM (130-400)
[2021-06-12 07:21] LABS: Albumin 2.3 G/DL (3.4-5.0); Bilirubin,Total 0.8 MG/DL (0.20-1.00); Calcium 8.8 MG/DL (8.5-10.1); Osmolality,Calculated 287.3 MOS/KG (273-304); Potassium 4.6 MMOL/L (3.5-5.1); Total Protein 6.7 G/DL (6.4-8.2)
[2021-06-12 07:38] LABS: Anisocytosis Slight; Band Neutrophils 1 % (0-10); Eosinophils 2 % (0-10); Lymphocytes 16 % (20-55); Macrocytosis 1+; Platelet Estimate Decreased; Segmented Neutrophils 64 % (50-85); Total Cells Counted 100
[2021-06-12] MEDS: FINASTERIDE 5 MG TABLET PO SCH (09:50)
[2021-06-12] MEDS: TAMSULOSIN 0.4 MG CAPSULE PO SCH ×2 (09:50→20:41)
[2021-06-12] MEDS: FAMOTIDINE 20 MG TABLET PO SCH (09:50)
[2021-06-12] MEDS: FLUDROCORTISONE 0.1 MG TABLET PO SCH ×2 (09:50→20:41)
[2021-06-12] MEDS: CITALOPRAM 20 MG TABLET PO SCH (09:51)
[2021-06-12] MEDS: LACTULOSE 20 GM/30 ML UDCUP PO SCH ×3 (09:51→20:40)
[2021-06-12] MEDS: traZODone 50 MG TABLET PO PRN (20:40)
[2021-06-12] MEDS: ROSUVASTATIN 20 MG TABLET PO SCH (20:40)
[2021-06-12] MEDS: DONEPEZIL 10 MG TABLET PO SCH (20:41)
[2021-06-12] MEDS: MELATONIN 3 MG TABLET PO PRN (20:41)
[2021-06-13] MEDS: ALBUTEROL/IPRATROPIUM 3 ML NEB RESP TX SCH ×6 (00:30→20:22)
[2021-06-13] MEDS: AMPICILLIN INJ 2,000 MG in SODIUM CHLORIDE 0.9% 100 ML IV SCH ×2 (02:27→14:36)
[2021-06-13 05:03] LABS: INR 1.1; PT Patient Result 12.5 SECS (10.5-12.0)
[2021-06-13 05:05] LABS: Basophils % 0.9 % (0.0-0.8); Eosinophils # 0.1 10*3/uL (0.0-0.87); Eosinophils % 2.5 % (0.00-10.9); Hematocrit 34.3 VOL% (42.0-52.0); Hemoglobin 10.9 GM/DL (14.0-18.0); Immature Granulocytes % 0.2 %; Immature Granulocytes Absolute 0.01 #; Lymphocytes # 0.7 10*3/uL (1.4-4.0); Lymphocytes % 14.7 % (21.2-54.2); Mean Corpuscular HGB Conc 31.8 GM/DL (32-36); Mean Corpuscular Volume 103.9 FL (87-102); Mean Platelet Volume 12.2 FL (9.6-12.0); Monocytes % 17.2 % (1.7-12.7); Neutrophils % 64.5 % (38.7-73.9); Platelet Count 58 T/CUMM (130-400); Red Cell Distribution Width 13.6 % (9.3-17.3); White Blood Count 4.5 T/CUMM (4-12)
[2021-06-13 05:45] LABS: Eosinophils 4 % (0-10); Lymphocytes 16 % (20-55); Segmented Neutrophils 68 % (50-85); Total Cells Counted 100
[2021-06-13 05:46] LABS: Hypochromasia 1+; Microcytosis 1+; Ovalocytes Slight; Platelet Estimate Decreased
[2021-06-13 06:04] LABS: Calcium 8.9 MG/DL (8.5-10.1); Osmolality,Calculated 288.3 MOS/KG (273-304); Potassium 3.8 MMOL/L (3.5-5.1)
[2021-06-13] MEDS: INSULIN LISPRO 100 UNIT/ML SUBCUT SCH ×4 (06:08→23:55)
[2021-06-13] MEDS ORDERED: ALBUMIN 25% 12.5 GM/50 ML VIAL IV ONE ×2 (09:14→09:21)
[2021-06-13] MEDS: CITALOPRAM 20 MG TABLET PO SCH (11:11)
[2021-06-13] MEDS: FINASTERIDE 5 MG TABLET PO SCH (11:11)
[2021-06-13] MEDS: FAMOTIDINE 20 MG TABLET PO SCH (11:12)
[2021-06-13] MEDS: TAMSULOSIN 0.4 MG CAPSULE PO SCH ×2 (11:12→20:39)
[2021-06-13] MEDS: FLUDROCORTISONE 0.1 MG TABLET PO SCH ×2 (11:15→20:40)
[2021-06-13] MEDS: LACTULOSE 20 GM/30 ML UDCUP PO SCH ×3 (11:16→21:00)
[2021-06-13] MEDS: traZODone 50 MG TABLET PO PRN (20:38)
[2021-06-13] MEDS: DONEPEZIL 10 MG TABLET PO SCH (20:39)
[2021-06-13] MEDS: ROSUVASTATIN 20 MG TABLET PO SCH (20:39)
[2021-06-13] MEDS: MELATONIN 3 MG TABLET PO PRN (20:39)
[2021-06-14] MEDS: ALBUTEROL/IPRATROPIUM 3 ML NEB RESP TX SCH ×5 (01:05→14:37)
[2021-06-14] MEDS: INSULIN LISPRO 100 UNIT/ML SUBCUT SCH ×2 (06:12→13:49)
[2021-06-14 08:29] VITALS: BP 109/63
[2021-06-14] MEDS: FLUDROCORTISONE 0.1 MG TABLET PO SCH (13:43)
[2021-06-14] MEDS: FAMOTIDINE 20 MG TABLET PO SCH (13:44)
[2021-06-14] MEDS: FINASTERIDE 5 MG TABLET PO SCH (13:44)
[2021-06-14] MEDS: TAMSULOSIN 0.4 MG CAPSULE PO SCH (13:44)
[2021-06-14] MEDS: CITALOPRAM 20 MG TABLET PO SCH (13:44)
[2021-06-14] MEDS: LACTULOSE 20 GM/30 ML UDCUP PO SCH (13:46)
== END 2021-06-14 16:09 | disposition home health service (06) | DRG 871 ==
LOC: N.ED 20:44 → N.EDINP 05-28 00:40 → SUATTDRO 05-28 00:40 → N.ICU 05-28 02:57 → N.5E 06-02 21:20
PROVIDERS: ADMIT Family Medicine; ATTEND Internal Medicine